=== PATIENT | female | born 1940 | race Caucasian/White ===

== ENCOUNTER 2019-10-06 13:49 | Emergency (ER) | payer OTHER ==
[~2019-10-06] VITALS: Ht 160 cm; Wt 64.9 kg
[2019-10-06] MEDS ORDERED: LANTUS SOL100 UNIT/1 (13:58)
[2019-10-06] MEDS ORDERED: TRILIPIX135 MG PO (13:59)
[2019-10-06] MEDS ORDERED: COZAAR100 MG PO (13:59)
== END 2019-10-06 18:34 | disposition home or self-care (01) ==
LOC: ER 13:49
DX: S82.031A Displaced transverse fracture of right patella, initial encounter for closed fracture (principal); S70.01XA Contusion of right hip, initial encounter; W18.39XA Other fall on same level, initial encounter; Y93.89 Activity, other specified; Y92.89 Other specified places as the place of occurrence of the external cause; Y99.8 Other external cause status

== ENCOUNTER 2020-08-12 19:14 | Emergency (ER) | payer OTHER ==
[~2020-08-12] VITALS: Ht 152.4 cm; Wt 54.4 kg
[~2020-08-12 19:14] MED LIST: COZAAR100 MG PO; LANTUS SOL100 UNIT/1; TRILIPIX135 MG PO
[2020-08-12] MEDS ORDERED: LIPITOR40 M1 (20:04)
[2020-08-12] MEDS ORDERED: ECOTRIN325 M1 (20:04)
[2020-08-12] MEDS ORDERED: LOVAZA1 GM (20:05)
== END 2020-08-12 23:54 | disposition home or self-care (01) ==
LOC: ER 19:14
DX: J22 Unspecified acute lower respiratory infection (principal); B34.9 Viral infection, unspecified; E11.65 Type 2 diabetes mellitus with hyperglycemia; Z79.4 Long term (current) use of insulin